=== PATIENT | female | born 1990 | race Caucasian/White ===

== ENCOUNTER 2019-01-18 22:05 | Emergency (ER) | payer OTHER ==
[~2019-01-18] VITALS: Ht 172.7 cm; Wt 70.3 kg
[2019-01-19] MEDS ORDERED: DUI500 PO ×2 (03:38→03:58)
[2019-01-19] MEDS ORDERED: DOLOGESIC 500-1 EACH PO ×2 (03:38→03:58)
== END 2019-01-19 04:03 | disposition home or self-care (01) ==
LOC: ER 22:05
DX: J02.9 Acute pharyngitis, unspecified (principal); R50.9 Fever, unspecified